=== PATIENT | female | born 1985 | race Caucasian/White ===

== ENCOUNTER → 2018-02-05 | Outpatient (CLI) | payer OTHER ==
[~2018-02-05] MED LIST: AVELOX400 MG PO; NORCO 5-325 TA1 EACH PO
== END ==
LOC: M.RAD 12:26
DX: M25.512 Pain in left shoulder (principal); G89.11 Acute pain due to trauma

== ENCOUNTER → 2020-08-06 | Day surgery (SDC) | payer OTHER ==
[~2020-08-06] MED LIST changes: +MULTIVITAMINS PO; +OMEPRAZOLE40 MG PO; +POTASSIUM99 M1 PO; +SLOW FE142 MG PO; +TRAMADOL 50 MG50 MG PO; +VITAMIN D325 MC3 PO; +WAL-PROFEN200 M1 PO
--- NOTE | ~2020-08-06 | PROC ---
[address] [address] PROCEDURE REPORT Name: CLOVER MILLER Room: [facility]#: [id number] Admission: 08/06/20 Attend Phys: Devante Vicente MD Discharge: Date of : 81 Report #: [id number] THIS REPORT FOR: cc: Marianna Dudley MD, Lin W. MD ~ [facility],Medical Records Staff For GI report, please see the Provation report in Perceptive 7 content. By: [id number] Records Staff [facility] /ORIN
[2020-08-06 07:02] LABS: HEMATOCRIT 34.7 % (37.0-47.0)
--- NOTE | 2020-08-10 16:06 | PATH ---
[address] [address] PATHOLOGY RPT PROCEDURE Name: CLOVER SWANSON Room: [facility]#: [id number] Admission: 08/06/20 Date of : 81 Discharge: Report #: [id number] Path Case #: [id number] [facility] Accession Number: [id number] . 01 Material submitted: . PART A: duodenum - DUODENAL BIOPSY PART B: ileum - TERMINAL ILEUM BIOPSY PART C: cecum - CECAL BIOPSY PART D: colon - ASCENDING COLON BIOPSY. Modifiers: ascending PART E: colon - TRANSVERSE COLON BIOPSY. Modifiers: transverse PART F: colon - DESCENDING COLON BIOPSY. Modifiers: descending PART G: colon - SIGMOID COLON BIOPSY. Modifiers: sigmoid PART H: rectum - RECTUM BIOPSY . 01 Clinician provided ICD-10: K92.1 . 01 Clinical history: . BLOOD IN STOOL . 02 Diagnosis: A. Duodenal biopsy: - Normal small intestinal mucosa. . B. Terminal ileum biopsy: - Normal small intestinal mucosa. . C. Cecal biopsy: - Normal colonic mucosa. . D. Ascending colon biopsy: - Benign colonic mucosa with mild non-specific lymphoplasmacytic infiltrate and fresh hemorrhage, negative for cryptitis, granulomas and dysplasia. . E. Transverse colon biopsy: - Chronic colitis with mild activity, negative for granulomas, viral inclusions and dysplasia. See comment. . F and G. Descending colon and sigmoid colon biopsies: - Chronic colitis with moderate activity, negative for granulomas, viral inclusions and dysplasia. See comment. . H. Rectum biopsy: - Minimal active colitis, negative for granulomas, viral inclusions and dysplasia. See comment. [facility] 08/10/2020 1312 Local . [address] [place] [address] PATHOLOGY RPT PROCEDURE Name: CLOVER SWANSON Room: [facility]#: [id number] Admission: 08/06/20 Date of : 81 Discharge: Report #: [id number] Path Case #: [id number] Comment: The transverse, descending and sigmoid colon biopsies (E through G), all show easily identified chronic inflammation evidenced by crypt distortion, basal lymphoplasmacytosis, prominence of eosinophils as well as basally located lymphoid follicles with mild active inflammation in the transverse colon and more easily identified active inflammation including cryptitis and neutrophils in the lamina propria in the descending and sigmoid biopsies. The rectum biopsy (H) shows a few neutrophils in superficial lamina propria in association with a lymphoplasmacytic aggregate, without evidence of chronic inflammation (crypt distortion or basal lymphoplasmacytosis). The histologic findings are typical of those seen with inflammatory bowel disease and compatible with Crohn's disease in the appropriate clinical context although similar findings can be seen in diverticular disease. (LEIGH ANN/db; 08/10/2020) . 02 Electronically signed: . Dirk Brantley MD, Pathologist NPI- [id number] . 01 Gross description: . A. Received in formalin labeled "Oppel, Clover, duodenal biopsy" are two hernandez-brown soft tissue fragments measuring in aggregate 0.5 x 0.3 x 0.1 cm. The specimen is submitted entirely in A1. . B. Received in formalin labeled "Oppel, Clover, terminal ileum biopsy" are two hernandez-brown soft tissue fragments measuring in aggregate 0.6 x 0.3 x 0.1 cm. The specimen is submitted entirely in B1. . C. Received in formalin labeled "Oppel, Clover, cecal biopsy" are multiple hernandez-brown soft tissue fragments measuring in aggregate 0.6 x 0.4 x 0.1 cm. The specimen is submitted entirely in C1. . D. Received in formalin labeled "Oppel, Clover, ascending colon biopsy" are multiple hernandez-brown soft tissue fragments measuring in aggregate 0.5 x 0.3 x 0.1 cm. The specimen is submitted entirely in D1. . E. Received in formalin labeled "Oppel, Clover, transverse colon biopsy" are two hernandez-brown soft tissue fragments measuring in aggregate 0.5 x 0.3 x 0.1 cm. The specimen is submitted entirely in E1. . F. Received in formalin labeled "Oppel, Clover, descending colon biopsy" is a fragment of hernandez-brown soft tissue measuring 0.3 x 0.3 x 0.1 cm. The specimen is submitted entirely in F1. . G. Received in formalin labeled "Oppel, Clover, sigmoid colon biopsy" are multiple hernandez-brown soft tissue fragments measuring in aggregate 0.8 x 0.4 x 0.1 cm. The specimen is submitted entirely in G1[place] . [place] [address] PATHOLOGY RPT PROCEDURE Name: CLOVER SWANSON Room: [facility]#: [id number] Admission: 08/06/20 Date of : 81 Discharge: Report #: [id number] Path Case #: [id number] H. Received in formalin labeled "Clover Swanson, rectum biopsy" are multiple hernandez-brown soft tissue fragments measuring in aggregate 0.5 x 0.5 x 0.1 cm. The specimen is submitted entirely in H1. ([facility]; 08/08/2020) [facility] 08/08/2020 1128 Local . 02 Pathologist provided ICD-10: K52.9, K92.1 . 02 CPT . 665127, 534423, 246858, 558696, 582776, 948597, [id number], [id number] Specimen Comment: A courtesy copy of this report has been sent to [phone], [phone] Specimen Comment: [id number] Specimen Comment: Report sent to / DR RODRIGUEZ Performed at: 01 [facility] [address], [place], [place] [id number] MD Enrique Canchola MD Phone: [phone] Performed at: 02 [facility] [place] [address], [place], [place] [id number] MD Dirk Brantley MD Phone: [phone]
== END | disposition home or self-care (01) ==
LOC: M.SUR 06:27
PROVIDERS: ATTEND Internal Medicine Gastroenterology
DX: K62.5 Hemorrhage of anus and rectum (principal); K52.9 Noninfective gastroenteritis and colitis, unspecified; R11.2 Nausea with vomiting, unspecified; K21.9 Gastro-esophageal reflux disease without esophagitis; F17.210 Nicotine dependence, cigarettes, uncomplicated; Z90.49 Acquired absence of other specified parts of digestive tract; Z79.899 Other long term (current) drug therapy; Z87.442 Personal history of urinary calculi

== ENCOUNTER → 2020-11-26 | Outpatient (CLI) | payer BC ==
[2020-11-27 05:18] LABS: HEPATITIS B SURFACE AG Negative (Negative)
== END ==
LOC: M.LAB 14:39
PROVIDERS: ATTEND Internal Medicine Gastroenterology
DX: K05.00 Acute gingivitis, plaque induced (principal)

== ENCOUNTER → 2020-12-18 | Outpatient (CLI) | payer BC ==
[2020-12-19 05:07] LABS: HEPATITIS B SURFACE AG Negative (Negative)
== END ==
LOC: M.LAB 14:17
PROVIDERS: ATTEND Internal Medicine Gastroenterology
DX: K50.00 Crohn's disease of small intestine without complications (principal)